=== PATIENT | female | born 1990 | race Caucasian/White ===

== ENCOUNTER 2022-10-19 05:35 | Inpatient (IN) ==
--- NOTE | 2022-10-11 10:28 | Anesthesiology Consultation ---
Date of Service October 11, 2022 Assessment & Plan (1) Encounter for pre-operative examination: Plan - COVID screening: Per manager research on 10/11/2022: Travel screen negative, no known COVID-19 positive contacts or current COVID-19 related symptoms in past 2 weeks. To surgeon's discretion if preop COVID testing is needed. Chart Review Chart Review: Acceptable Risk for Surgery and Patient NOT seen in Pre Admission Testing History Surgery Operation Date: 10/19/22 07:30 Proposed Procedures p Section in LD (Delivery of Baby Through Abdominal Incision) - Cheri Riggins, Height/Weight Height: 5 ft 7 in Weight: 114.305 kg Allergies Allergy/AdvReac Type Severity Reaction Status Date / Time No Known Allergies Allergy Verified 10/11/22 09:48 Medications Home Medications Medication Instructions Recorded Confirmed Last Taken prenat.vits,jen,ujo-sbxi-qyajg 1 tab PO DAILY 03/20/22 10/11/22 Unknown acetone (urine) test (Ketone Urine #50 ea 05/19/22 10/05/22 Unknown Test strips) blood sugar diagnostic (OneTouch #150 ea 05/19/22 10/05/22 Unknown Verio test strips) blood-glucose meter (OneTouch #1 ea 05/19/22 10/05/22 Unknown Verio Reflect Meter) lancets 33 gauge (OneTouch Delica #150 ea 05/19/22 10/11/22 Unknown Lancets) breast pump #1 ea 07/13/22 10/05/22 Unknown insulin NPH isoph U-100 human 100 8 unit (0.08 mL) subcut QPM #15 mL 07/19/22 10/11/22 Unknown unit/mL (3 mL) subcutaneous pen (Novolin N FlexPen) pen needle, diabetic 32 gauge x #100 ea 07/19/22 10/11/22 Unknown 5/32" (BD Ultra-Fine Ailyn Pen Needle) cetirizine 10 mg tablet (Zyrtec) 10 mg PO DAILY PRN Allergy Symptoms 10/11/22 10/11/22 Unknown Past Medical History Medical History Gestational diabetes History of COVID-19 08/2021- COUGH, LOSS OF TASTE AND SMELL; RESOLVED History of depression Past Family History Family History Father Multiple kidney stones Hypertension Other No family history of adverse response to anesthesia Denies family history of Ovarian cancer Breast cancer Colorectal cancer Past Surgical History Surgical History S/P wisdom tooth extraction Social History Smoking Status: Never smoker Do You Dip or Chew Tobacco: No Hx Alcohol Use: No Hx Substance Use: No substance use type: does not use
--- NOTE | 2022-10-18 17:39 | History & Physical Report ---
Date of Service October 18, 2022 Assessment & Plan (1) Breech presentation: Plan: Will plan for primary section d/t breech presentation. Reviewed risks, benefits, alternatives to surgery in office with patient. Informed consent signed. Questions answered. Patient agreeable to proceed. (2) LGA (large for gestational age) fetus affecting management of mother: (3) Insulin controlled gestational diabetes mellitus (GDM) during : (4) Encounter for supervision of normal , unspecified, unspecified trimester: History of Present Illness Chief Complaint: breech section Primary Care Provider: [facility] 31yo with [facility] 10/25/22, scheduled for breech section. with: GDM on insulin *Wkly NSTs @32wks and Twice wkly @36wks *Serial growth US @28wks *Deliver by [facility] LGA Breech presentation C/S SCHEDULED FOR 10/19/[address] CHINO AND DR[address] PAT ASSIST Flu shot given 03/23/22 - [place] Allergies Allergy/AdvReac Type Severity Reaction Status Date / Time No Known Allergies Allergy Verified 10/18/22 15:01 Home Medications Medication Instructions Recorded Confirmed Type prenat.vits,jen,jwq-pzor-zvitd 1 tab PO DAILY 03/20/22 10/18/22 History acetone (urine) test (Ketone Urine #50 ea 05/19/22 10/18/22 Rx Test strips) blood sugar diagnostic (OneTouch #150 ea 05/19/22 10/18/22 Rx Verio test strips) blood-glucose meter (OneTouch #1 ea 05/19/22 10/18/22 Rx Verio Reflect Meter) lancets 33 gauge (OneTouch Delica #150 ea 05/19/22 10/18/22 Rx Lancets) breast pump #1 ea 07/13/22 10/18/22 Rx insulin NPH isoph U-100 human 100 8 unit (0.08 mL) subcut QPM #15 mL 07/19/22 10/18/22 Rx unit/mL (3 mL) subcutaneous pen (Novolin N FlexPen) pen needle, diabetic 32 gauge x #100 ea 07/19/22 10/18/22 Rx 5/32" (BD Ultra-Fine Ailyn Pen Needle) cetirizine 10 mg tablet (Zyrtec) 10 mg PO DAILY PRN Allergy Symptoms 10/11/22 10/18/22 History Patient History Medical History Gestational diabetes History of COVID-19 08/2021- COUGH, LOSS OF TASTE AND SMELL; RESOLVED History of depression Surgical History S/P wisdom tooth extraction Family History Father Multiple kidney stones Hypertension Other No family history of adverse response to anesthesia Denies family history of Ovarian cancer Breast cancer Colorectal cancer Social History Smoking Status: Never smoker Second Hand Exposure: No; Hx Alcohol Use: No Hx Substance Use: No Preferred Language: Turkmen Communication Ability: Effective Rubber Thread Spooler Required: No Beliefs That Will Affect Care: None marital status: marital status details: Jair Chang (31) [phone] Current Living Situation: Spouse and Family Current Living Situation Comment: lives with spouse, daughter current occupational status: employed current occupation: works on [employer] Feels Safe at Home: Yes Assistive Devices: Glasses Review of Systems All systems reviewed & are unremarkable except as noted in HPI & below Physical Exam Constitutional: WD/WN, vitals as above Respiratory: normal respiratory effort, lungs clear to auscultation no respiratory distress Cardiovascular: Rate/Rhythm: regular rate and regular rhythm Gastrointestinal (Abdomen): Inspection/Auscultation: abdomen normal to inspection Percussion/Palpation: abdomen soft; abdomen nontender Gravid. No s/s chorio or abruption. Skin: no rashes, warm and dry Psychiatric: A+Ox3, euthymic affect Coding Level of Care Code None Diagnoses Breech presentation O32.1XX0 LGA (large for gestational age) fetus affecting management of mother O36.60X0 Insulin controlled gestational diabetes mellitus (GDM) during O24.414 Encounter for supervision of normal , unspecified, unspecified trimester Z34.90
[2022-10-19] MEDS ORDERED: LACTATED RINGER'S 1,000 ML IV SCH (05:45)
[2022-10-19] MEDS ORDERED: CITRIC ACID/SODIUM CITRATE 15 ML UDC PO SCH (06:00)
[2022-10-19 06:17] LABS: Basophils # (auto) 0.03 K/uL (0-0.2); Basophils % (auto) 0.3 %; Eosinophils # (auto) 0.26 K/uL (0-0.50); Eosinophils % (auto) 2.7 %; Hematocrit (blood only) 37.7 % (37.0-47.0); Hemoglobin 13.3 g/dl (12.0-16.0); Immature Granulocytes # (auto) 0.05 K/uL (0.01-0.20); Immature Granulocytes % (auto) 0.5 %; Lymphocytes # (auto) 2.33 K/uL (1.2-3.4); Lymphocytes % (auto) 24.1 %; Mean Corpuscular Hemoglobin 31.2 pg (25.0-34.0); Mean Corpuscular Hgb Conc 35.3 g/dL (32.0-36.0); Mean Corpuscular Volume 88.5 fL (80.0-100.0); Monocytes # (auto) 0.63 K/uL (0.11-0.59); Monocytes % (auto) 6.5 %; Neutrophils # (auto) 6.35 K/uL (1.40-6.50); Neutrophils % (auto) 65.9 %; Platelet Count 159 K/uL (130-400); RDW Coefficient of Variation 13.4 % (11.5-14.5); RDW Standard Deviation 43.7 fL (36.4-46.3); Red Blood Count 4.26 M/uL (4.20-5.40); White Blood Count 9.65 K/ul (4.8-10.8)
[2022-10-19] MEDS ORDERED: MoRPHine SULFATE PF 1 MG/ML 10 ML AMP/VIAL ONE (06:54)
[2022-10-19] MEDS ORDERED: fentaNYL citrate PF 100 MCG/2 ML VIAL ONE (06:54)
[2022-10-19] MEDS ORDERED: OXYTOCIN 10 UNITS/ML 10ML VIAL ONE (06:54)
--- NOTE | 2022-10-19 07:25 | History & Physical Bridge Note ---
Date of Service October 19, 2022 History & Physical Bridge Note I have examined the patient, reviewed the History & Physical and in the interval since the performance of the History & Physical I have noted the following changes of clinical significance: no changes noted
[2022-10-19] MEDS ORDERED: NO NARCOTICS OR SEDATIVES SCH (08:00)
[2022-10-19] MEDS ORDERED: SODIUM CHLORIDE 0.9% 1000ML 1,000 ML IV SCH (08:00)
[2022-10-19] MEDS ORDERED: diphenhydrAMINE 50 MG/ML VIAL IV PRN (08:00)
[2022-10-19] MEDS ORDERED: NALOXONE HCL 0.4 MG/1 ML VIAL/CARP IV PRN (08:00)
[2022-10-19] MEDS ORDERED: MEPERIDINE HCL 25 MG/ML CARP/VIAL IV PRN (08:00)
[2022-10-19] MEDS ORDERED: NALOXONE HCL 0.08 MG in SYRINGE 1.8 ML IV PRN (08:00)
[2022-10-19] MEDS ORDERED: LACTATED RINGER'S 500 ML IV PRN (08:00)
[2022-10-19] MEDS ORDERED: ePHEDrine sulfate 50 MG/ML AMP IV PRN (08:00)
[2022-10-19] MEDS ORDERED: ONDANSETRON INJ 2 MG/ML 2 ML VIAL IV PRN (08:00)
[2022-10-19] MEDS ORDERED: MoRPHine SULFATE PF 1 MG/ML 10 ML AMP/VIAL INT SPINAL ONE (08:00)
[2022-10-19] MEDS ORDERED: NALBUPHINE HCL INJ 10 MG/ML AMP IV PRN (08:00)
[2022-10-19] MEDS ORDERED: NALOXONE HCL 1 MG in SODIUM CHLORIDE 0.9% 1000ML 1,000 ML IV PRN (08:00)
[2022-10-19] MEDS ORDERED: PHENYLEPHRINE 100MCG/ML 5ML SYR ONE (08:17)
--- NOTE | 2022-10-19 08:44 | Operative Report ---
PG Post Operative Report Pre & Post Diagnosis Operation Date: 10/19/22 07:30 Pre-Op Diagnosis: Breech presentation. Post-Op Diagnosis: Breech presentation. Delivery of live male child at 0804. I identified the patient and participated in the time-out.: Yes Procedure Operation Date: 10/19/22 07:30 Actual Procedures Primary Low Transverse Section in LD, delivery of live male child at 0804 - Cheri Riggins DO Surgeon Cheri Riggins DO Technical Sales Representative Hu Foreman MD Estimated Blood Loss 500 Findings Consistent with Post-Op Diagnosis Viable male , Apgars 8/9. Weight 9#13. Normal appearing uterus, tubes, ovaries. Specimens placenta, cord blood, cord gas. Drains stokes, clear yellow Anesthesia Type Spinal Complications none Disposition Accompanied Patient To Recovery: No Disposition: L&D Indications 31yo @ 39 07/08, primary for breech presentation. Description of Procedure The patient was seen in her labor and delivery room, risks benefits and alternatives to surgery were reviewed. Informed consent obtained. Questions we re answered. She was taken to the operating room, spinal anesthesia was administered. She was then prepared and draped in the usual sterile fashion in the supine position with a leftward tilt. Timeout was confirmed. A Pfannenstiel skin incision was made with a scalpel, and carried through to the underlying layer of fascia. Fascia was nicked at midline, and this incision was extended bilaterally. The superior aspect of the fascial incision was grasped with Adrian clamps x2, elevated off the underlying rectus abdominis muscles, and dissected sharply and bluntly. In similar fashion, the inferior aspect of the fascial incision was dissected. The rectus abdominis muscles were , and the peritoneum was entered bluntly digitally. This was extended bilaterally. The bladder flap was taken down carefully using Metzenbaum scissors. Using a new scalpel, a low transverse uterine incision was created. Clear amniotic fluid noted. The was delivered from a regino breech presentat ion. The legs delivered, along with buttocks, followed by abdomen/torso. The bilateral arms were swept medially for delivery, and then the head delivered easily. Spontaneous cry on the field. The cord was doubly clamped and cut, and the was handed off to the waiting marketing developer. A segment was retained for cord gases. Cord blood was obtained. The placenta was delivered spontaneously intact. The uterus was exteriorized, and cleared of all clots and debris. The hysterotomy incision was reapproximated using 0 Vicryl in a running locked stitch. A second layer of the same suture was used to imbricate the incision. Posterior uterus was evaluated and normal. The uterus was returned to the abdomen, and gutters were cleared of clots and debris. Excellent hemostasis was observed. The fascial incision was reapproximated using 0 Vicryl in a running stitch. The subcutaneous tissue was irrigated, and reapproximated using 2-0 plain gut in a running stitch. The skin was reapproximated using 4-0 Vicryl in a running subcuticular stitch. AGNES dressing was applied. The patient tolerated the procedure well, and will be taken to the recovery area in stable and good condition. Sponge, needle, instrument counts correct x 2 at conclusion of the case. I attest to the content of the Intraoperative Record and any orders documented therein. Any exceptions are noted below. OB Procedure Charges 70931
[2022-10-19 08:45] LABS: Base Excess Cord Arterial Bld -5.3 mEq/L (-9-1.8); CO2 Cord Arterial Blood 67 mmHg (39.1-73.5); HCO3 Cord Arterial Blood 24 mmol/L (19.7-28.5); Oxygen Sat Cord Arterial Blood < 60.0 % (<60); PO2 Cord Arterial Blood 13 mmHg (4.1-31.7); pH Cord Arterial Blood 7.17 (7.1-7.38)
[2022-10-19 08:47] LABS: Base Excess Cord Venous Blood -4.3 mEq/L (-7.7-1.9); Cord Venous Blood HCO3 22 mmol/L (18.4-26.8); Cord Venous Blood PCO2 42 mmHg (30.4-57.2); Cord Venous Blood PO2 30 mmHg (14.1-43.3); Cord Venous Blood pH 7.32 (7.20-7.44); O2 Saturation Cord Venous Bld 62.6 % (<68)
--- NOTE | 2022-10-19 09:33 | Anesthesiology Progress Note ---
Date of Service October 19, 2022 Anesthesia Post Procedure Vital Signs Vital Signs: Temp Pulse Resp BP Pulse Ox O2 Del Method 10/19/22 08:46 97.7 F 19 100 Room Air 10/19/22 09:27 76 100 10/19/22 09:25 83 116/56 L 10/19/22 09:22 76 100 10/19/22 09:17 76 100 10/19/22 09:15 73 116/56 L 10/19/22 09:12 76 98 10/19/22 09:06 81 100 10/19/22 09:04 81 126/62 10/19/22 09:01 79 100 10/19/22 08:56 86 99 10/19/22 08:53 82 108/56 L 10/19/22 08:51 85 99 10/19/22 08:46 88 99 10/19/22 08:47 89 109/72 10/19/22 05:53 81 123/68 10/19/22 05:47 16 123/68 Pain Intensity Lower Medial Abdomen: Pain Intensity: 4 Transfer of Care Handoff Completed per policy Notes Mental Status: alert / awake / arousable and participated in evaluation Nausea / Vomiting: adequately controlled Pain: adequately controlled Airway Patency, RR, SpO2: stable & adequate BP & HR: stable & adequate Hydration State: stable & adequate Neuraxial Anesthesia: was administered and sensory block is resolving Anesthetic Complications: no major complications apparent and Pt Satisfied with anesthetic care
[2022-10-19] MEDS ORDERED: PROMETHAZINE HCL 25 MG in SODIUM CHLORIDE 0.9% 50 ML IV PRN (09:35)
[2022-10-19] MEDS ORDERED: SENNA 8.6 MG TAB PO PRN (09:35)
[2022-10-19] MEDS ORDERED: BENZOCAINE 20% AER SPR 82.5 GM CAN EXT PRN (09:35)
[2022-10-19] MEDS ORDERED: HYDROCORTISONE ACETATE 25 MG SUPP PR PRN (09:35)
[2022-10-19] MEDS ORDERED: MAGNESIUM HYDROXIDE SUSP 30 ML UDC PO PRN (09:35)
[2022-10-19] MEDS: OXYTOCIN 30 UNITS in LACTATED RINGER'S 1,000 ML IV SCH ×2 (12:15→17:48)
[2022-10-19] MEDS: KETOROLAC 30 MG/ML VIAL IV PRN ×2 (12:48→23:54)
[2022-10-19] MEDS: SIMETHICONE 80 MG CHEW PO SCH ×3 (13:46→21:33)
[2022-10-19] MEDS: DOCUSATE SODIUM 100 MG CAP PO SCH (20:50)
[2022-10-19] MEDS ORDERED: NovoLIN-N (NPH) PER UNIT CHARGE SQ SCH (21:00)
[2022-10-20] MEDS ORDERED: DC INTRASPINAL MORPHINE SCH (02:00)
[2022-10-20] MEDS ORDERED: diphenhydrAMINE Capsule 25 MG CAP PO PRN (02:00)
[2022-10-20] MEDS ORDERED: diphenhydrAMINE 50 MG/ML VIAL IV PRN (02:00)
[2022-10-20] MEDS ORDERED: ONDANSETRON INJ 2 MG/ML 2 ML VIAL IV PRN (02:00)
[2022-10-20] MEDS ORDERED: KETOROLAC 30 MG/ML VIAL IV PRN (02:00)
[2022-10-20] MEDS: IBUPROFEN 600 MG TAB PO PRN ×5 (04:24→21:24)
[2022-10-20 06:04] LABS: Basophils # (auto) 0.02 K/uL (0-0.2); Basophils % (auto) 0.2 %; Eosinophils # (auto) 0.34 K/uL (0-0.50); Eosinophils % (auto) 2.9 %; Hematocrit (blood only) 34.8 % (37.0-47.0); Hemoglobin 11.8 g/dl (12.0-16.0); Immature Granulocytes # (auto) 0.05 K/uL (0.01-0.20); Immature Granulocytes % (auto) 0.4 %; Lymphocytes # (auto) 1.46 K/uL (1.2-3.4); Lymphocytes % (auto) 12.4 %; Mean Corpuscular Hemoglobin 31.3 pg (25.0-34.0); Mean Corpuscular Hgb Conc 33.9 g/dL (32.0-36.0); Mean Corpuscular Volume 92.3 fL (80.0-100.0); Mean Platelet Volume 10.4 fL (9.4-12.4); Monocytes # (auto) 0.68 K/uL (0.11-0.59); Monocytes % (auto) 5.8 %; Neutrophils # (auto) 9.23 K/uL (1.40-6.50); Neutrophils % (auto) 78.3 %; Platelet Count 147 K/uL (130-400); RDW Coefficient of Variation 13.6 % (11.5-14.5); RDW Standard Deviation 45.2 fL (36.4-46.3); Red Blood Count 3.77 M/uL (4.20-5.40); White Blood Count 11.78 K/ul (4.8-10.8)
--- NOTE | 2022-10-20 07:03 | Obstetrical Progress Note ---
Date of Service October 20, 2022 Assessment & Plan (1) Gestational diabetes: (2) Encounter for supervision of normal , unspecified, unspecified trimester: (3) Insulin controlled gestational diabetes mellitus (GDM) during : Plan Lauryn is a 31 y/o female who is POD #1 following delivery at 39 weeks. -Meeting all milestones -Vitals reviewed and WNL -A+/GBS negative/Rubella immune -Follow up in 6 weeks for appointment -Continue routine care Admission and Anticipated Discharge Date Admission Date: October 19, 2022 Supervising Physician Co-Signing Physician Notes Resident Physician Supervision Note: I interviewed and examined the patient. Discussed with Dr. López and agree with findings and plan as documented in the note. Any exceptions or clarifications are listed here: Doing well POD1. Stokes is out, advancing diet ok. Ambulating. AGNES in place, abdomen soft. Goals for today of increasing ambulation, advance diet. Documented By: Cheri Riggins, DO Subjective Lauryn is a 31 y/o female who is POD #1 following delivery at 39 weeks. Her was complicated by GDM, required insulin. She reports feeling well overall this morning. Notes abdominal cramping & soreness at incision site. Voiding without issue since removal of stokes catheter. Tolerating meals overnight and able to ambulate some. Endorses passing gas, no bowel movement yet. Has some persistent lochia with some improvement this morning. Currently breast feeding. Review of Systems Constitutional: no fever, no chills and no sweats Respiratory: no cough, no dyspnea and no wheezing Cardiovascular: no chest pain, no palpitations and no calf pain Genitourinary: no dysuria Neurologic: no headache(s) Physical Exam Constitutional: WD/WN, vitals as above no acute distress Respiratory: no respiratory distress Auscultation: lungs clear to auscultation bilaterally; no rales, no rhonchi and no wheezes Cardiovascular: RRR, no murmur, no edema Extremities: no calf tenderness and no edema Negative Raymond's sign bilaterally. Gastrointestinal (Abdomen): Inspection/Auscultation: normal bowel sounds Genitourinary: Uterine fundus firm, palpable below the umbilicus. Dressing covering surgical incision site, no visible drainage or bleeding Results & Data Vital Signs (Past 12 Hours) Vital Signs Temp Pulse Resp BP Pulse Ox O2 Del Method 10/20/22 03:50 37.0 C 87 18 109/71 97 Room Air 10/20/22 02:20 18 96 10/20/22 01:30 18 97 10/20/22 00:05 20 18 L 10/19/22 23:45 18 97 10/19/22 23:45 37.0 C 84 18 102/68 97 Room Air 10/19/22 23:15 18 97 10/19/22 22:20 18 96 10/19/22 21:14 20 97 10/19/22 20:00 18 96 10/19/22 20:05 18 97 10/19/22 19:30 18 98 10/19/22 19:30 Room Air 10/19/22 19:30 37.2 C 77 18 113/75 98 Room Air Resident Activity Tracking Resident Involvement: Resident Care Provided Care Provided: OB Delivery
[2022-10-20] MEDS: LACTATED RINGER'S 1,000 ML IV SCH ×2 (07:21→18:12)
[2022-10-20] MEDS: FERROUS SULFATE 325 MG TAB PO SCH (08:42)
[2022-10-20] MEDS: DOCUSATE SODIUM 100 MG CAP PO SCH ×2 (08:42→19:41)
[2022-10-20] MEDS: oxyCODONE/ACETAMINOPHEN 5mg/325mg TAB PO PRN ×4 (08:43→21:25)
[2022-10-20] MEDS: SIMETHICONE 80 MG CHEW PO SCH ×4 (08:43→19:41)
[2022-10-20] MEDS: PRENATAL VITAMIN 1 TAB PO SCH (08:43)
[2022-10-20] MEDS ORDERED: DIPHTHERIA/TETANUS/PERTUSSIS 0.5mL SYR/VIAL (Age 7+yrs) IM ONE (09:00)
[2022-10-20] MEDS ORDERED: bisacodyL 5 MG TABEC PO SCH (20:00)
[2022-10-21] MEDS: IBUPROFEN 600 MG TAB PO PRN ×3 (02:56→13:42)
[2022-10-21] MEDS: LACTATED RINGER'S 1,000 ML IV SCH (02:56)
[2022-10-21] MEDS: oxyCODONE/ACETAMINOPHEN 5mg/325mg TAB PO PRN ×3 (02:56→13:42)
--- NOTE | 2022-10-21 06:25 | Obstetrical Progress Note ---
Date of Service October 21, 2022 Assessment & Plan (1) Gestational diabetes: (2) Encounter for supervision of normal , unspecified, unspecified trimester: (3) Insulin controlled gestational diabetes mellitus (GDM) during : Plan Lauryn is a 31 y/o female who is POD #2 following delivery at 39 weeks. -Meeting all milestones -Vitals reviewed and WNL -A+/GBS negative/Rubella immune -Follow up in 6 weeks for appointment, will need 1 week follow up appointment for removal of AGNES dressing. -Continue routine care -Will have discharge paperwork ready if patient decides to leave later today (will need AGNES dressing changed prior to d/c) Admission and Anticipated Discharge Date Admission Date: October 19, 2022 Supervising Physician Co-Signing Physician Notes Resident Physician Supervision Note: I interviewed and examined the patient. Discussed with Dr. López and agree with findings and plan as documented in the note. Any exceptions or clarifications are listed here: Doing well. Routine care. Considering d/c later today. Documented By: Sandra Jay MD, FACOG Subjective Lauryn is a 31 y/o female who is POD #2 following delivery at 39 weeks. Her was complicated by GDM, required insulin. She reports feeling well overall this morning. Notes abdominal cramping & soreness at incision site, but feels that the Percocet helps with the pain. Voiding without issue. Tolerating meals overnight and able to ambulate some. Endorses passing gas, no bowel movement yet. Has some persistent lochia with some improvement this morning. Currently breast feeding. Review of Systems Constitutional: no fever, no chills and no sweats Respiratory: no cough, no dyspnea and no wheezing Cardiovascular: no chest pain, no palpitations and no calf pain Genitourinary: no dysuria Neurologic: no headache(s) Physical Exam Constitutional: WD/WN, vitals as above no acute distress Respiratory: no respiratory distress Auscultation: lungs clear to auscultation bilaterally; no rales, no rhonchi and no wheezes Cardiovascular: RRR, no murmur, no edema Extremities: no calf tenderness and no edema Gastrointestinal (Abdomen): Inspection/Auscultation: normal bowel sounds Genitourinary: AGNES dressing in place. Uterine fundus firm to palpation below umbilicus. Results & Data Vital Signs (Past 12 Hours) Vital Signs Temp Pulse Resp BP Pulse Ox O2 Del Method 10/20/22 23:50 36.6 C 85 16 103/69 98 Room Air 10/20/22 19:25 36.5 C 74 18 113/74 98 Room Air Resident Activity Tracking Resident Involvement: Resident Care Provided Care Provided: OB Delivery
[2022-10-21 07:14] LABS: Hemoglobin 11.5 g/dl (12.0-16.0)
[2022-10-21] MEDS: PRENATAL VITAMIN 1 TAB PO SCH (08:41)
[2022-10-21] MEDS: SIMETHICONE 80 MG CHEW PO SCH (08:41)
[2022-10-21] MEDS: DOCUSATE SODIUM 100 MG CAP PO SCH (08:41)
[2022-10-21] MEDS: FERROUS SULFATE 325 MG TAB PO SCH (08:41)
[2022-10-21] MEDS ORDERED: bisacodyL 10 MG SUPP PR PRN (09:05)
--- NOTE | 2022-10-23 16:56 | Discharge Summary ---
Date of Service October 23, 2022 Admission HPI Per Admitting Provider 31yo with EDC 10/25/22, scheduled for breech section. with: GDM on insulin *Wkly NSTs @32wks and Twice wkly @36wks *Serial growth US @28wks *Deliver by [facility] LGA Breech presentation C/S SCHEDULED FOR 10/19/[address] RIGGINS AND DR. PAT ASSIST Flu shot given 03/23/22 - [place] Discharge Data Consultations 10/19/22 05:36 Consult Anesthesiology Stat Procedures Performed Operation Date: 10/19/22 07:30 Actual Procedures p Section in LD, delivery of live male child at 0804 - Cheri Riggins, Hospital Course (1) Encounter for supervision of normal , unspecified, unspecified trimester: Admitted for scheduled section. Routine postop course, DC home POD2. Followup in office 6w , 1w for AGNES dressing removal. Coding Level of Care Code None Diagnoses Encounter for supervision of normal , unspecified, unspecified trimester Z34.90
== END 2022-10-21 14:00 | disposition home or self-care (01) | DRG 788 ==
LOC: 4S1 05:35 → EDSTATUS 07:30 → 4E2 13:28

== ENCOUNTER 2024-03-24 05:28 | Inpatient (IN) ==
--- NOTE | 2024-03-20 10:11 | Anesthesiology Consultation ---
Date of Service March 20, 2024 Assessment & Plan (1) Encounter for pre-operative examination: - Per assessment manager on 03/20/24: No known infectious disease contacts, current infectious disease symptoms in past 10 days or COVID positive test result in the past 30 days. Chart Review Chart Review: blasting entryman initiated History Surgery Operation Date: 03/24/24 07:30 Proposed Procedures p Section (Delivery of Baby Through Abdominal Incision) - Cheri Riggins DO Height/Weight Height: 5 ft 7 in Weight: 121.563 kg Allergies Allergy/AdvReac Type Severity Reaction Status Date / Time No Known Allergies Allergy Verified 03/20/24 07:44 Medications Home Medications Medication Instructions Recorded Confirmed Last Taken prenat.vits,jen,rtw-dyvs-veebx 1 tab PO QAM 03/20/22 03/20/24 10/18/22 acetone (urine) test (Ketone Urine #50 ea 09/14/23 03/11/24 Unknown Test strips) blood sugar diagnostic (OneTouch #150 ea 09/14/23 03/11/24 Unknown Verio test strips) lancets 33 gauge (OneTouch Delica #150 ea 09/14/23 03/11/24 Unknown Plus Lancet) cetirizine 10 mg tablet (Zyrtec) 10 mg PO DAILY PRN Allergy Symptoms 03/20/24 03/20/24 Unknown insulin NPH isoph U-100 human 100 65 unit subcut HS 03/20/24 03/20/24 Unknown unit/mL (3 mL) subcutaneous pen (Novolin N FlexPen) Past Medical History Medical History Gestational diabetes w/current ; IDDM History of chicken pox History of COVID-08/2021- COUGH, LOSS OF TASTE AND SMELL; RESOLVED History of depression Past Family History Family History Father Multiple kidney stones Hypertension Other No family history of adverse response to anesthesia Denies family history of Ovarian cancer Breast cancer Colorectal cancer Past Surgical History Surgical History S/P section 09/2022 S/P wisdom tooth extraction Social History Smoking Status: Never smoker Do You Dip or Chew Tobacco: No Hx Alcohol Use: Yes (occasional, not while ) Hx Substance Use: No substance use type: does not use
--- NOTE | 2024-03-21 17:14 | History & Physical Report ---
Date of Service March 21, 2024 Assessment & Plan (1) Previous delivery affecting , antepartum: Plan: Patient had hoped for vaginal after , she is aware of recommendation for default on her due date if not in labor. We rev iewed consent in the office, questions were answered. She is agreeable to proceed with the above plan. History of Present Illness Chief Complaint: scheduled Primary Care Provider: NO PCP 33yo with EDC 03/24/24. GDM on insulin *Wkly NSTs @32wks and Twice wkly @36wks *Serial growth US @28wks *Deliver by [facility] Previous * consent given. *prior , breech c/s with 2nd preg C/S SCHEDULED FOR 03/24/[address] ROYAL CHINO Obesity (BMI between 35-39 @ beginning of ) *Growth US @ 32 wks *Weekly NSTs @ 36wks LGA Allergies Allergy/AdvReac Type Severity Reaction Status Date / Time No Known Allergies Allergy Verified 03/21/24 10:08 Home Medications Medication Instructions Recorded Confirmed Type prenat.vits,jen,ibx-nski-ktgqo 1 tab PO QAM 03/20/22 03/21/24 History acetone (urine) test (Ketone Urine #50 ea 09/14/23 03/21/24 Rx Test strips) blood sugar diagnostic (OneTouch #150 ea 09/14/23 03/21/24 Rx Verio test strips) lancets 33 gauge (OneTouch Delica #150 ea 09/14/23 03/21/24 Rx Plus Lancet) cetirizine 10 mg tablet (Zyrtec) 10 mg PO DAILY PRN Allergy Symptoms 03/20/24 03/21/24 History insulin NPH isoph U-100 human 100 65 unit subcut HS 03/20/24 03/21/24 History unit/mL (3 mL) subcutaneous pen (Novolin N FlexPen) Patient History Medical History Gestational diabetes w/current ; IDDM History of chicken pox History of COVID-19 08/2021- COUGH, LOSS OF TASTE AND SMELL; RESOLVED History of depression Surgical History S/P section 09/2022 S/P wisdom tooth extraction Family History Father Multiple kidney stones Hypertension Other No family history of adverse response to anesthesia Denies family history of Ovarian cancer Breast cancer Colorectal cancer Social History (Updated 08/08/23 @ 10:03 by Loraine Sheets) Smoking Status: Never smoker Second Hand Exposure: No; Do You Dip or Chew Tobacco: No; Hx Alcohol Use: Yes (occasional, not while ) Hx Substance Use: No Preferred Language: Bahraini Communication Ability: Effective Instructional Manager Required: No Beliefs That Will Affect Care: None marital status: marital status details: Jair Chang (32) [phone] Current Living Situation: Spouse and Family Current Living Situation Comment: lives with spouse, 2 children, dogs current occupational status: employed current occupation: works on [employer] Feels Safe at Home: Yes Assistive Devices: Glasses Review of Systems All systems reviewed & are unremarkable except as noted in HPI & below Physical Exam Constitutional: WD/WN, vitals as above Respiratory: normal respiratory effort, lungs clear to auscultation no r espiratory distress Cardiovascular: Rate/Rhythm: regular rate and regular rhythm Gastrointestinal (Abdomen): Inspection/Auscultation: abdomen normal to inspection Percussion/Palpation: abdomen soft; abdomen nontender Gravid. No s/s chorio or abruption. Skin: no rashes, warm and dry Psychiatric: A+Ox3, euthymic affect Coding Level of Care Code None Diagnoses Previous delivery affecting , antepartum O34.219
[2024-03-24] MEDS ORDERED: SODIUM CHLORIDE 0.9% 250 ML IV PRN (05:36)
[2024-03-24] MEDS: LACTATED RINGER'S 1,000 ML IV SCH ×2 (05:57→07:04)
[2024-03-24 06:19] LABS: Hematocrit (blood only) 39.7 % (37.0-47.0); Hemoglobin 13.6 g/dl (12.0-16.0); Mean Corpuscular Hemoglobin 30.8 pg (25.0-34.0); Mean Corpuscular Hgb Conc 34.3 g/dL (32.0-36.0); Mean Platelet Volume 10.4 fL (9.4-12.4); Platelet Count 169 K/uL (130-400); RDW Coefficient of Variation 13.2 % (11.5-14.5); RDW Standard Deviation 43.3 fL (36.4-46.3); Red Blood Count 4.41 M/uL (4.20-5.40)
[2024-03-24] MEDS: ACETAMINOPHEN 500 MG TAB PO SCH (06:33)
[2024-03-24] MEDS ORDERED: KETOROLAC 30 MG/ML VIAL ONE (06:38)
[2024-03-24] MEDS ORDERED: ONDANSETRON INJ 2 MG/ML 2 ML VIAL ONE (06:38)
[2024-03-24] MEDS ORDERED: OXYTOCIN 10 UNITS/ML VIAL ONE (06:38)
[2024-03-24] MEDS ORDERED: PHENYLEPHRINE HCL 25 MG/250 ML NSS IV ONE (06:38)
[2024-03-24] MEDS ORDERED: fentaNYL citrate PF 100 MCG/2 ML VIAL ONE (06:38)
[2024-03-24] MEDS ORDERED: MoRPHine SULFATE 2 MG/ML CARP ONE (06:39)
[2024-03-24] MEDS ORDERED: MoRPHine SULFATE PF 1 MG/ML 10 ML AMP/VIAL ONE (06:39)
--- NOTE | 2024-03-24 07:20 | History & Physical Bridge Note ---
Date of Service March 24, 2024 History & Physical Bridge Note I have examined the patient, reviewed the History & Physical and in the interval since the performance of the History & Physical I have noted the following changes of clinical significance: no changes noted
[2024-03-24] MEDS: CITRIC ACID/SODIUM CITRATE 15 ML UDC PO SCH (07:31)
[2024-03-24] MEDS: ceFAZolin 3000MG 3,000 MG/72.5 ML BAG IV SCH (07:32)
[2024-03-24] MEDS ORDERED: NALOXONE HCL 0.4 MG/1 ML VIAL/CARP IV PRN (07:51)
[2024-03-24] MEDS ORDERED: ePHEDrine sulfate 50 MG/ML AMP IV PRN (07:51)
[2024-03-24] MEDS ORDERED: ACETAMINOPHEN 1,000 MG/100 ML VIAL IV PRN (07:51)
[2024-03-24] MEDS ORDERED: HYDROmorphone INJ 0.5 MG/0.5 ML SYR IV PRN (07:51)
[2024-03-24] MEDS ORDERED: NALBUPHINE HCL INJ 10 MG/ML AMP IV PRN (07:51)
[2024-03-24] MEDS ORDERED: ONDANSETRON INJ 2 MG/ML 2 ML VIAL IV PRN (07:51)
[2024-03-24] MEDS ORDERED: KETOROLAC 30 MG/ML VIAL IV PRN (07:51)
[2024-03-24] MEDS ORDERED: diphenhydrAMINE 50 MG/ML VIAL IV PRN (07:51)
[2024-03-24] MEDS ORDERED: LACTATED RINGER'S 500 ML IV PRN (07:51)
[2024-03-24] MEDS ORDERED: PROMETHAZINE 6.25 MG/50.25 ML BAG IV PRN (07:51)
[2024-03-24] MEDS ORDERED: NALOXONE HCL 0.08 MG in SYRINGE 1.8 ML IV PRN (07:51)
[2024-03-24] MEDS ORDERED: NALOXONE HCL 1 MG in SODIUM CHLORIDE 0.9% 1,000 ML IV PRN (07:51)
[2024-03-24] MEDS ORDERED: DC INTRASPINAL MORPHINE SCH (08:00)
[2024-03-24] MEDS ORDERED: NO NARCOTICS OR SEDATIVES SCH (08:00)
[2024-03-24] MEDS: MoRPHine SULFATE PF 1 MG/ML 10 ML AMP/VIAL INT SPINAL ONE (08:04)
[2024-03-24 09:00] LABS: Base Excess Cord Arterial Bld -5.2 mEq/L (-9-1.8); Base Excess Cord Venous Blood -3.1 mEq/L (-7.7-1.9); CO2 Cord Arterial Blood 63 mmHg (39.1-73.5); Cord Venous Blood HCO3 23 mmol/L (18.4-26.8); Cord Venous Blood PCO2 45 mmHg (30.4-57.2); Cord Venous Blood PO2 31 mmHg (14.1-43.3); Cord Venous Blood pH 7.32 (7.20-7.44); HCO3 Cord Arterial Blood 24 mmol/L (19.7-28.5); O2 Saturation Cord Venous Bld 65.5 % (<68); Oxygen Sat Cord Arterial Blood < 60.0 % (<60); PO2 Cord Arterial Blood < 20 mmHg (4.1-31.7); pH Cord Arterial Blood 7.19 (7.1-7.38)
[2024-03-24] MEDS ORDERED: MAGNESIUM HYDROXIDE SUSP 30 ML UDC PO PRN (09:12)
[2024-03-24] MEDS ORDERED: HYDROCORTISONE ACETATE 25 MG SUPP PR PRN (09:12)
[2024-03-24] MEDS ORDERED: BENZOCAINE 20% SPRY 85 APPLN/85 GM CAN EXT PRN (09:12)
[2024-03-24] MEDS ORDERED: CALCIUM CARBONATE 500 MG CHEWABLE TAB PO PRN (09:12)
--- NOTE | 2024-03-24 09:38 | Operative Report ---
PG Post Operative Report Pre & Post Diagnosis Operation Date: 03/24/24 07:30 Pre-Op Diagnosis: 1. GDM-Insulin Controlled 2. Previous delivery affecting . 3. Scheduled Repeat C/S. Post-Op Diagnosis: 1. GDM-Insulin Controlled 2. Previous delivery affecting . 3. Scheduled Repeat C/S. 4. Devlivery of Male via C/S on 03/24/2024 at 0806 in L&D OR. 5. Delivery of Placenta. 6. Cord blood collected. 7. Cord Arterial and Cord Venous Gases Collected. I identified the patient and participated in the time-out.: Yes Procedure Operation Date: 03/24/24 07:30 Actual Procedures p Repeat Low Transverse Section - Cheri Riggins DO Surgeon Cheri Riggins DO Supervisor Floor Assembly Mir Ugarte MD Estimated Blood Loss 528 Findings Consistent with Post-Op Diagnosis Viable male , apgars 8/9, Weight pending please see nursery records. Specimens placenta, cord blood, cord gas Drains stokes clear yellow Anesthesia Type Spinal Complications none Disposition Accompanied Patient To Recovery: Yes Disposition: L&D Indications 33yo @ 40 0/7, h/o , GDMA2, obesity Description of Procedure The patient was seen in her labor and delivery room, risks benefits and alternatives to surgery were reviewed. Informed consent obtained. Questions were answered. She was taken to the operating room, spinal anesthesia was administered. She was then prepared and draped in the usual sterile fashion in the supine position with a leftward tilt. Timeout was confirmed. A Pfannenstiel skin incision was made with a scalpel, and carried through to the underlying layer of fascia. Fascia was nicked at midline, and this incision was extended bilaterally. The superior aspect of the fascial incision was grasped with Adrian clamps x2, elevated off the underlying rectus abdominis muscles, and dissected sharply and bluntly. In similar fashion, the inferior aspect of the fascial incision was dissected. The rectus abdominis muscles were , and the peritoneum was entered bluntly digitally. This was extended bilaterally. The bladder flap was taken down carefully using Metzenbaum scissors. Using a new scalpel, a low transverse uterine incision was created. Clear amniotic fluid noted. The was delivered from a cephalic presentation. The head delivered, followed by shoulders and body. Spontaneous cry on the field. The cord was doubly clamped and cut, and the infant was handed off to the waiting graphic illustrator. A segment was retained for cord gases. Cord blood was obtained. The placenta was delivered spontaneously intact. The uterus was exteriorized, and cleared of all clots and debris. The hysterotomy incision was reapproximated using 0 Vicryl in a running locked stitch. A second layer of the same suture was used to imbricate the incision. Posterior uterus was evaluated and normal. The uterus was returned to the abdomen, and gutters were cleared of clots and debris. Perclot powder used across raw edges for excellent hemostasis. Re- evaluation of pelvis and excellent hemostasis was observed. The fascial incision was reapproximated using 0 Vicryl in a running stitch. The subcutaneous tissue was irrigated, and reapproximated using 2-0 plain gut in a running stitch. The skin was reapproximated using 4-0 Vicryl in a running subcuticular stitch. AGNES dressing applied. The patient tolerated the procedure well, and will be taken to the recovery area in stable and good condition. I attest to the content of the Intraoperative Record and any orders documented therein. Any exceptions are noted below. OB Procedure Charges 69073
--- NOTE | 2024-03-24 11:18 | Anesthesiology Progress Note ---
Date of Service March 24, 2024 Anesthesia Post Procedure Vital Signs Vital Signs: Temp Pulse Resp BP Pulse Ox O2 Del Method 03/24/24 11:16 83 99 03/24/24 11:12 78 123/74 03/24/24 11:11 81 98 03/24/24 11:06 83 100 03/24/24 11:02 81 118/67 03/24/24 11:01 80 98 03/24/24 10:56 80 99 03/24/24 10:52 81 118/65 03/24/24 10:51 81 99 03/24/24 10:46 89 97 03/24/24 10:42 84 126/71 03/24/24 10:41 82 98 03/24/24 10:36 98 H 97 03/24/24 10:32 81 123/73 03/24/24 10:31 81 97 03/24/24 10:26 87 97 03/24/24 10:22 77 122/69 03/24/24 10:21 79 96 03/24/24 10:17 80 93 03/24/24 10:16 78 95 03/24/24 10:12 80 122/68 03/24/24 10:11 83 98 03/24/24 10:06 83 96 03/24/24 10:02 75 118/64 03/24/24 10:01 76 97 03/24/24 09:56 80 98 03/24/24 09:52 83 120/60 03/24/24 09:51 85 97 03/24/24 09:46 82 96 03/24/24 09:42 80 120/59 L 03/24/24 09:41 78 98 03/24/24 09:36 77 97 03/24/24 09:32 83 121/66 03/24/24 09:31 81 98 03/24/24 09:26 88 100 03/24/24 09:21 86 99 03/24/24 09:16 73 99 03/24/24 09:12 97.5 F L 16 Room Air 03/24/24 09:12 76 125/72 03/24/24 09:11 76 99 03/24/24 06:44 81 131/84 03/24/24 05:40 97.9 F 18 Transfer of Care Handoff Completed per policy Notes Mental Status: alert / awake / arousable and participated in evaluation Patient Amnestic to Procedure: Yes Nausea / Vomiting: adequately controlled Pain: adequately controlled Airway Patency, RR, SpO2: stable & adequate BP & HR: stable & adequate Hydration State: stable & adequate Neuraxial Anesthesia: was administered and sensory block is resolving Anesthetic Complications: no major complications apparent and Pt Satisfied with anesthetic care
[2024-03-24] MEDS ORDERED: Nursing to Pharmacy Communication SCH (11:30)
[2024-03-24] MEDS: IBUPROFEN 600 MG TAB PO SCH (12:16)
[2024-03-24] MEDS: SIMETHICONE 80 MG CHEW PO SCH (12:16)
[2024-03-24] MEDS: PRENATAL VITAMIN 1 TAB PO SCH (12:17)
[2024-03-24] MEDS: ACETAMINOPHEN 325 MG TAB PO SCH (12:17)
[2024-03-24] MEDS: OXYTOCIN 30 UNITS/LR 1,003 ML IV SCH (12:18)
[2024-03-24] MEDS: SODIUM CHLORIDE 0.9% 1,000 ML IV SCH (13:26)
[2024-03-24] MEDS: DIPHTHER/TETAN/PERTUS Vaccine (Tdap, Adol/Adult) 0.5mL IM ONE (13:27)
[2024-03-24] MEDS ORDERED: IBUPROFEN 600 MG TAB PO SCH (14:15)
[2024-03-24] MEDS ORDERED: ACETAMINOPHEN 325 MG TAB PO SCH (14:15)
[2024-03-24] MEDS: SENNA 8.6 MG TAB PO PRN (21:28)
[2024-03-24] MEDS: DOCUSATE SODIUM 100 MG CAP PO SCH (21:28)
[2024-03-25] MEDS ORDERED: HYDROmorphone INJ 0.5 MG/0.5 ML SYR IV PRN (01:52)
[2024-03-25] MEDS ORDERED: PROMETHAZINE 12.5 MG/50.5 ML BAG IV PRN (01:52)
[2024-03-25] MEDS ORDERED: diphenhydrAMINE Capsule 25 MG CAP PO PRN (01:52)
[2024-03-25] MEDS ORDERED: oxyCODONE HCL IR 5 MG TAB (IMMEDIATE RELEASE) PO PRN (01:52)
[2024-03-25] MEDS ORDERED: ONDANSETRON INJ 2 MG/ML 2 ML VIAL IV PRN (01:52)
[2024-03-25] MEDS ORDERED: diphenhydrAMINE 50 MG/ML VIAL IV PRN (01:52)
--- NOTE | 2024-03-25 06:09 | Obstetrical Progress Note ---
Date of Service March 25, 2024 Assessment & Plan (1) Previous delivery affecting , antepartum: POD#1 doing well. AGNES in place - bandage clean. Eating/drinking ok. Bleeding scant. Ambulating and urinating ok. Continue routine /postop care. Subjective Ambulation: ambulating normally Voiding: no voiding problems Diet Tolerance:: regular diet Lochia:: Moderate Review of Systems All systems reviewed & are unremarkable except as noted in HPI & below Physical Exam Constitutional WD/WN, vitals as above no acute distress Respiratory normal respiratory effort Cardiovascular Rate/Rhythm: regular rate and regular rhythm Gastrointestinal (Abdomen) Inspection/Auscultation: abdomen normal to inspection; abdomen not distended Percussion/Palpation: abdomen soft Genitourinary OB Exam Abdomen: + fundal height Fundus: + firm; not tender Results & Data Vital Signs (Past 12 Hours) Vital Signs Temp Pulse Resp BP Pulse Ox O2 Del Method 03/24/24 23:15 37.0 C 102 H 18 116/77 96 Room Air 03/24/24 19:15 37.4 C 99 H 18 110/71 97 Room Air 03/24/24 19:00 97 03/24/24 18:39 14 97
[2024-03-25 06:40] LABS: Basophils # (auto) 0.02 K/uL (0.00-0.20); Basophils % (auto) 0.1 %; Eosinophils # (auto) 0.18 K/uL (0.00-0.50); Eosinophils % (auto) 1.2 %; Hematocrit (blood only) 35.6 % (37.0-47.0); Hemoglobin 12.5 g/dl (12.0-16.0); Immature Granulocytes # (auto) 0.08 K/uL (0.01-0.20); Immature Granulocytes % (auto) 0.5 %; Lymphocytes # (auto) 0.99 K/uL (1.20-3.40); Lymphocytes % (auto) 6.4 %; Mean Corpuscular Hemoglobin 31.3 pg (25.0-34.0); Mean Corpuscular Hgb Conc 35.1 g/dL (32.0-36.0); Mean Corpuscular Volume 89.2 fL (80.0-100.0); Mean Platelet Volume 10.5 fL (9.4-12.4); Monocytes # (auto) 0.69 K/uL (0.11-0.59); Monocytes % (auto) 4.5 %; Neutrophils % (auto) 87.3 %; Platelet Count 147 K/uL (130-400); RDW Coefficient of Variation 13.2 % (11.5-14.5); RDW Standard Deviation 43.6 fL (36.4-46.3); Red Blood Count 3.99 M/uL (4.20-5.40); White Blood Count 15.36 K/ul (4.8-10.8)
[2024-03-25] MEDS: PRENATAL VITAMIN 1 TAB PO SCH (07:37)
--- NOTE | 2024-03-25 10:55 | Communication Note ---
Date of Service: March 25, 2024 Examined Lauryn at her bedside few minutes back. 1st POD foll El. LSCS for previous CS. She has complain of tender points in her right lateral leg and left leg as well. No swelling, no redness, no fever. Able to ambulate; no pain in ambulation. Vitals: Stable Exam: LL: Few spots of folliculitis noted, one of them is tender and indurated in right leg; seems she is feeling pain because of same. BL legs varicose veins noted. Non tender Bilateral calves on deep palpation. Raymond's sign negative bilaterally. I believe her pain is secondary to her Folliculitis. DVT is ruled out in clinical evaluation. I don't think she needs Doppler at this point. I counselled patient and explained her my best; she agrees with our plan. Encourage her to ambulate more today and let us know if she has any more pain on walking. Resident Activity Tracking Resident Involvement: Resident Care Provided Care Provided: OB Delivery Addendum March 25, 2024 10:56 Evaluated pt due to tenderness on legs bilaterally. Calves NT bilaterally. Focal areas of tenderness on R and L legs just inferior to post knee and lat post knee respectively around varicosities. R area with area of what looks like folliculitis and tender around it. No significant erythema around areas bilaterally. Discussed low suspicion for dvt but given recent procedure and risk factors will order duplex
[2024-03-25] MEDS: FERROUS SULFATE 325 MG TAB PO SCH (12:56)
--- NOTE | 2024-03-25 14:10 | Ultrasound Report ---
US venous doppler LE BI CLINICAL HISTORY: varicose veins, s/p cs, pain TECHNIQUE: Bilateral lower extremity real-time compression venous ultrasound with Color Doppler imagi ng. Utilizing real-time ultrasonic imaging multiple real time high-resolution ultrasonic images with compression and noncompression maneuvers of the deep venous system in addition to color doppler imagi ng were performed from the common femoral vein through the proximal calf veins. COMPARISON: None available at the time of this dictation. FINDINGS/IMPRESSION: No deep venous thrombus, there is normal compressibility of the deep venous system from the common fe moral vein through the proximal calf veins. At the point of interest in the right lateral thigh to t he calf, there are numerous superficial thrombosed varices. A few thrombosed varices are also seen on the left. ACT 112: Negative or not required by law. Electronically signed by: Guille Brewer M.D. 03/25/2024 2:08 PM
--- NOTE | 2024-03-25 14:34 | Communication Note ---
Date of Service: March 25, 2024 Duplex shows no DVT however there is superficial thromobosis. Does have risk factors for vte so will consult heme to discuss if anticoagulation indicated
[2024-03-25] MEDS ORDERED: ENOXAPARIN 1 MG/KG SQ SCH (15:15)
[2024-03-25] MEDS ORDERED: ENOXAPARIN INJ 120 MG/0.8 ML SYR SQ SCH (16:00)
--- NOTE | 2024-03-25 17:21 | Oncology Consultation ---
Date of Consultation March 25, 2024 Assessment & Plan (1) Acute superficial venous thrombosis of lower extremity: discussed this case with my DRIVEWAY ATTENDANT colleagues and also made the recommendation clear to the patient. Since she is in the peripartum state and had superficial venous thrombosis she will be at a higher risk of developing DVTs. At this point I recommended treatment with Lovenox 1 mg/kg twice daily to a maximum dose of 100 mg twice daily. At this point she will start Lovenox I do not see a complete contraindication to anticoagulation. Recommend follow-up in the hematology clinic once discharged. Recommend anticoagulation for A duration Of 12 weeks. no indications for hypercoagulable testing at this point Plan hematology will continue to follow the patient make appropriate recommendations. Thank you for this interesting urological consult. History of Present Illness Reason for Consultation: Superficial venous thrombosis Attending Physician: Cheri Riggins DO History of Present Illness Venous Doppler, 03/24/2024: No deep venous thrombus, there is normal compressibility of the deep venous system from the common femoral vein through the proximal calf veins. At the point of interest in the right lateral thigh to the calf, there are numerous superficial thrombosed varices. A few thrombosed varices are also seen on the left. the patient is a very pleasant 33-year-old woman who is postop day 1 delivery, who was recently identified to have superficial venous thrombosis. She does not have any strong family history of blood clots, no personal history of blood clots. This is her third no blood clots in her previous preg nancies. She has noticed varicosities in the past. she has had slight vaginal bleeding, however does not have any history of bleeding disorders, no contraindications to bleeding. Allergies Allergy/AdvReac Type Severity Reaction Status Date / Time No Known Allergies Allergy Verified 03/21/24 10:08 Home Medications Medication Instructions Recorded Confirmed Type prenat.vits,jen,hag-[id number] 1 tab PO QAM 03/20/22 03/24/24 History acetone (urine) test (Ketone Urine #50 ea 09/14/23 03/21/24 Rx Test strips) blood sugar diagnostic (OneTouch #150 ea 09/14/23 03/21/24 Rx Verio test strips) lancets 33 gauge (OneTouch Delica #150 ea 09/14/23 03/21/24 Rx Plus Lancet) cetirizine 10 mg tablet (Zyrtec) 10 mg PO DAILY PRN Allergy Symptoms 03/20/24 03/24/24 History insulin NPH isoph U-100 human 100 65 unit subcut HS 03/20/24 03/24/24 History unit/mL (3 mL) subcutaneous pen (Novolin N FlexPen) enoxaparin 100 mg/mL subcutaneous 100 mg subcut Q12H 3 months #180 mL 03/26/24 Rx syringe oxycodone 5 mg tablet 5 - 10 mg (1 - 2 x 5 mg) PO Q3H 03/26/24 Rx PRN pain #14 tabs Patient History Medical History Gestational diabetes w/current ; IDDM History of chicken pox History of COVID-19 08/2021- COUGH, LOSS OF TASTE AND SMELL; RESOLVED History of depression Surgical History S/P section 09/2022 S/P wisdom tooth extraction Family History Father Multiple kidney stones Hypertension Other No family history of adverse response to anesthesia Denies family history of Ovarian cancer Breast cancer Colorectal cancer Social History Smoking Status: Never smoker Second Hand Exposure: No; Do You Dip or Chew Tobacco: No; Tobacco Cessation Education Requested by Patient: No Hx Alcohol Use: Yes (occasional, not while ) Hx Substance Use: No Preferred Language: Polish Communication Ability: Effective Dater Assembler Required: No Beliefs That Will Affect Care: None marital status: marital status details: Jackie Chang (32) [phone] Current Living Situation: Spouse and Family Current Living Situation Comment: spouse jackie and 2 kids current occupational status: employed current occupation: works on [employer] Other Information That Helps Us Care for You: No Feels Safe at Home: Yes Safety Concerns: Feels Safe At This Time Assistive Devices: Glasses Review of Systems Review of Systems: Complete review of system was done pertinent positive mentioned in HPI Constitutional: no fever, chills, night sweats, nausea or vomiting Eyes: as per Subjective / HPI Ear, Nose, Mouth, Throat: as per Subjective / HPI Respiratory: as per Subjective / HPI Cardiovascular: as per Subjective / HPI Gastrointestinal: as per Subjective / HPI Genitourinary: as per Subjective / HPI Musculoskeletal: as per Subjective / HPI Integumentary: as per Subjective / HPI Neurologic: as per Subjective / HPI Psychiatric: as per Subjective / HPI Endocrine: as per Subjective / HPI Hematologic / Lymphatic: as per Subjective / HPI Allergy / Immunological: as per Subjective / HPI Physical Exam Constitutional: WD/WN, vitals as above Eyes: PERRL, conjunctivae normal, anicteric sclerae ENMT: external ear and nose normal, oropharynx normal Neck: trachea midline, no thyromegaly Respiratory: normal respiratory effort, lungs clear to auscultation Cardiovascular: RRR, no murmur, no edema Gastrointestinal (Abdomen): normal bowel sounds, soft, nontender, no hepatosplenomegaly Musculoskeletal: no cyanosis or clubbing, extremities motor strength 5/5 Skin: no rashes, warm and dry Neurologic: patellar DTR's 2+ bilat, sensation intact Psychiatric: A+Ox3, euthymic affect Genitourinary: no vaginal lesions, no adnexal mass Lymphatic: no cervical or axillary lymphadenopathy Results & Data Vital Signs (Past 12 Hours) Vital Signs Temp Pulse Resp BP Pulse Ox O2 Del Method 03/25/24 12:15 36.8 C 98 H 18 133/81 97 Room Air 03/25/24 07:40 36.6 C 98 H 18 101/68 97 Room Air
[2024-03-25] MEDS: ENOXAPARIN 100 MG/1ML SYR SQ SCH (18:21)
[2024-03-25] MEDS: bisacodyL 5 MG TABEC PO SCH (20:31)
[2024-03-26 01:59] VITALS: O2SAT 99
--- NOTE | 2024-03-26 06:50 | Obstetrical Progress Note ---
Date of Service March 26, 2024 Assessment & Plan (1) Previous delivery affecting , antepartum: Plan: POD#2 doing well. AGNES in place - bandage clean. Eating/drinking ok. Bleeding scant. Ambulating and urinating ok. Lovenox started for superficial Thrombophlebitis yesterday. Will give her few more doses before discharge. She should be able to self inject before going home Continue routine /postop care. Admission and Anticipated Discharge Date Admission Date: March 24, 2024 Supervising Physician Co-Signing Physician Notes Resident Physician Supervision Note: I interviewed and examined the patient. Discussed with Dr. Khan and agree with findings and plan as documented in the note. Any exceptions or clarifications are listed here: POD2 s/p rLTCS, doing well. Heme saw yesterday due to multiple superficial thromboses of leg, they rec therapeutic vte dosing w/ lovenox 100mg bid x 3 mo. VSS, exam benign and wnl, agnes dressing in place. Pt may desire dc home today pending baby due to wt, will send rx and confirm no f/u indicated otherwise from heme perspective Documented By: Ana Foreman MD Subjective 2nd POD following EL LTCS. Doing well in bedside. No pain on walking, no Swelling of legs No SOB, chest pain Lovenox started for superficial Thrombophlebitis yesterday. Ambulation: Normal Urine: Normal Bowel Move+ Lochia: Mild No breast feed issue Review of Systems Review of Systems: As per HPI Physical Exam Physical Exam: Constitutional: Well appearing, No acute distress, PILCCOD: Negative HEENT: Atraumatic, Normocephalic, No conjunctival injection CVS: S1 S2 no murmur, Regular Rhythm, no LE edema Respiratory: BL equal air entry with NVBS. No rhonchi, wheezes, or crackles. No increased work of breathing Abdomen:Soft, minimally distended, Bandage intact; AGNES bandage insitu; No soakage Uterus: Between Umbilicus and PS. Well contracted. Lower limb: No edema, redness or tenderness. Results & Data Vital Signs (Past 12 Hours) Vital Signs Temp Pulse Resp BP Pulse Ox O2 Del Method 03/25/24 23:25 36.9 C 94 H 20 103/71 99 Room Air 03/25/24 19:45 36.8 C 106 H 18 116/75 98 Room Air Resident Activity Tracking Resident Involvement: Resident Care Provided Care Provided: OB Delivery
[2024-03-26 06:51] LABS: Hematocrit (blood only) 30.2 % (37.0-47.0); Hemoglobin 10.2 g/dl (12.0-16.0)
[2024-03-26] MEDS ORDERED: bisacodyL 10 MG SUPP PR PRN (09:12)
[2024-03-26 13:20] VITALS: BP 114/74; RESP 16; TEMP 98.1
[2024-03-26] MEDS ORDERED: ACETAMINOPHEN 325 MG TAB PO PRN (14:12)
[2024-03-26] MEDS ORDERED: IBUPROFEN 600 MG TAB PO PRN (14:12)
[2024-03-26 16:09] VITALS: PULSE 101
--- NOTE | 2024-03-27 16:57 | Discharge Summary ---
Date of Service March 27, 2024 Admission HPI Per Admitting Provider 33yo with EDC 03/24/24. GDM on insulin *Wkly NSTs @32wks and Twice wkly @36wks *Serial growth US @28wks *Deliver by EDC Previous * consent given. *prior , breech c/s with 2nd preg C/S SCHEDULED FOR 03/24/[address] CHERI RIGGINS Obesity (BMI between 35-39 @ beginning of ) *Growth US @ 32 wks *Weekly NSTs @ 36wks LGA Admission Exam (Per Admitting) Constitutional WD/WN, vitals as above no acute distress Respiratory normal respiratory effort, lungs clear to auscultation normal respiratory effort; no respiratory distress Cardiovascular Rate/Rhythm: regular rate and regular rhythm Gastrointestinal (Abdomen) Inspection/Auscultation: abdomen normal to inspection; abdomen not distended Percussion/Palpation: abdomen soft; abdomen nontender Skin no rashes, warm and dry Psychiatric A+Ox3, euthymic affect Genitourinary OB Exam Abdomen: + fundal height Discharge Data Consultations 03/25/24 14:25 Consult Hematology Routine Procedures Performed Operation Date: 03/24/24 07:30 Actual Procedures p Section - Cheri Riggins, DO Hospital Course (1) Previous delivery affecting , antepartum: POD#2 doing well. AGNES in place - bandage clean. Eating/drinking ok. Bleeding scant. Ambulating and urinating ok. Lovenox started for superficial Thrombophlebitis yesterday. Will give her few more doses before discharge. She should be able to self inject before going home Continue routine /postop care. Supervising Physician Co-Signing Physician Notes Resident Physician Supervision Note: I interviewed and examined the patient. Discussed with Dr. Khan and agree with findings and plan as documented in the note. Any exceptions or clarifications are listed here: POD2 s/p rLTCS, doing well. Heme saw yesterday due to multiple superficial thromboses of leg, they rec therapeutic vte dosing w/ lovenox 100mg bid x 3 mo. VSS, exam benign and wnl, agnes dressing in place. Pt may desire dc home today pending baby due to wt, will send rx and confirm no f/u indicated otherwise from heme perspective Documented By: Ana Foreman MD Coding Level of Care Code None Diagnoses Previous delivery affecting , antepartum O34.219
== END 2024-03-26 14:00 | disposition home or self-care (01) | DRG 787 ==
LOC: 4S1 05:28 → EDSTATUS 09:00 → 4E2 11:25